=== PATIENT | male | born 1960 | race Caucasian/White ===

== ENCOUNTER → 2023-03-28 13:48 | Outpatient (BNVA) | payer MEDICARE, MEDICAID, SELFPAY | PROVIDERS: Visit Provider Surgery | DX: R10.31 Right lower quadrant pain (principal) | CPT/HCPCS: 99204 ==

== ENCOUNTER 2023-04-16 08:04 | Day surgery (SDC) | payer MEDICARE, OTHER, SELFPAY ==
[2023-04-16] VITALS (10 sets, daily range): BP systolic 130–141; BP diastolic 79–93; PULSE 85–96; RESP 13–25; TEMP 36.2–36.6; O2SAT 94–99; BMI 23.1
[2023-04-16] MEDS: sodium chloride 0.9% 1,000 ML 30 ML IV (08:58)
--- NOTE | 2023-04-16 09:19 | W.PM.OPSUD ---
Surgery/Procedure H&P Update DATE OF PROCEDURE: April 16, 2023 DATE H&P PERFORMED: 03/28/23 H&P UPDATE INFORMATION: I have reviewed H&P completed within last 30 days, I have examined patient prior to procedure and No changes to prior documentation PLANNED PROCEDURE: Operation Date: 04/16/23 10:00 Proposed Procedures p 30277 lap kyia r10.9(Not Applicable) - Kenneth Hathaway,
--- NOTE | 2023-04-16 09:21 | ANES.PREANE2 ---
Pre-Anesthetic Assessment Height/Weight: Height 1.8 m Weight 75.296 kg Temp Pulse Resp BP Pulse Ox O2 Del Method 97.9 F 96 18 131/79 99 Room Air 04/16/23 08:27 04/16/23 08:27 04/16/23 08:27 04/16/23 08:27 04/16/23 08:27 04/16/23 08:40 Operation Date: 04/16/23 10:00 Proposed Procedures p 28455 lap kiya r10.9(Not Applicable) - Kenneth Hathaway DO Familial anesthetic complications: none Was Beta Thalia taken within 24 hours: N/A Was Clonidine taken within 24 hours: N/A Last intake: Intake Last Liquid Date 04/15/23 Last Liquid Time 11:30 Last Solid Date 04/15/23 Last Solid Time 11:30 Social No alcohol and No tobacco Exam alert, oriented x 3, clear to auscultation bilaterally and regular rate & rhythm Airway Submandibular: within normal limits Cervical ROM: within normal limits Mallampati: Class II Dentition: false (upper) History/ROS No significant history except as noted Anesthetic Plan ASA status: 1 Anesthesia: General Medications/Allergies Home Medications Medication Instructions Recorded Confirmed Last Taken Type No Known Home Medications 04/13/23 04/13/23 Unknown History Allergies Allergy/AdvReac Type Severity Reaction Status Date / Time No Known Allergies Allergy Verified 04/13/23 14:20 Current Medications Generic Name Dose Route Start Last Admin Trade Name Freq PRN Reason Stop Dose Admin Sodium Chloride 1,000 mls @ 30 mls/hr 04/16/23 08:15 04/16/23 08:58 Sodium Chloride 0.9% IV 04/17/23 08:14 30 mls/hr .Q24H ANDREA Administration PFSH Anesthesia Surgical History Hx of appendectomy 07/2022 Family History Mother Breast cancer Father Lung cancer Social History Smoking and tobacco/nicotine status: never used tobacco/nicotine Alcohol intake: current Alcohol intake frequency: holidays/special occasions only Data Anesthesia Cardiac Studies: No Data to Display
[2023-04-16] MEDS: HYDROmorphone 1 mg/mL INJ 1 mL 0.5 MG IVP (09:34)
[2023-04-16] MEDS: ceFAZolin 2,000 MG in sodium chloride 0.9% (plus) 50 ML 100 MG IV (09:41)
[2023-04-16] MEDS: lidocaine-epi 2% 20 mL INJ INJECTION (10:07)
--- NOTE | 2023-04-16 10:35 | PM.OP ---
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 He was diagnosed with symptomatic cholelithiasis. Laparoscopic cholecystectomy was indicated. The risk and benefits were explained and documented. Procedure: Patient was wheeled operative room placed on the OR table in supine position. The abdomen was inspected prepped and draped in usual sterile fashion. A timeout was performed. All present were in agreement. General endotracheal ovation was achieved by department anesthesia. 2% lidocaine with epinephrine was used to anesthetize the skin over Dent's point in the left upper quadrant. A 15 blade scalpel was then used to make a stab incision. Veress needle was used to create intra-abdominal insufflation to 15 mmHg. A 5 mm trocar was then placed into the umbilicus. Immediately upon entering the abdomen there was obvious mucin throughout the abdomen along with fixed and matted small and large bowel. 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 I then paused and scrubbed out to go talk to next of kin. I explained my findings and that there is a significant amount of matted bowel in the right hemiabdomen and right upper quadrant covering the gallbladder. I recommended that we sample the mucin and send it to cytology and not proceed with cholecystectomy. The next of kin was agreeable to this. I then scrubbed back in and extended the stab incision in the left upper quadrant to a 5 mm incision. A second 5 mm trocar was placed in the left upper quadrant. I then suctioned mucin out of the pelvis to send to pathology. Intra-abdominal insufflation was released. Skin was closed with 4-0 Monocryl in a subcuticular fashion. Skin glue was applied. Patient tolerated procedure well
[2023-04-16] MEDS: HYDROcodone-acetaminophen 10-325 mg Tablet 1 TAB PO (11:37)
[2023-04-16 11:59] LABS: Cyto Order Verification Order Verified
[2023-04-16 12:19] LABS: Carcinoembryonic Antigen 1.3 ng/mL (0.0-4.7)
--- NOTE | 2023-04-16 16:10 | ANE.PACU2 ---
Inpatient post-anesthesia follow up: Airway intact: Yes Vital signs: Temperature 97.8 F Pulse Rate 95 Respiratory Rate 16 Blood Pressure 136/88 Pulse Oximetry 95 Oxygen Delivery Me thod Room Air Oxygen Flow Rate Fraction of Inspir ed Oxygen Hydration adequate: Yes Nausea and vomiting: No Pain level: 2 Mental status: Baseline
== END 2023-04-16 11:55 | disposition home or self-care (01) ==
PROVIDERS: Surgery; PCP Physician Assistant; Visit Provider Pathology Anatomic Pathology & Clinical Pathology
PROC: (CPT 49320; principal; 2023-04-16 10:00)
DX: K80.20 Calculus of gallbladder without cholecystitis without obstruction (principal); C79.89 Secondary malignant neoplasm of other specified sites; G71.19 Other specified myotonic disorders
CPT/HCPCS: 49320; 36415; 82378; 88112; 88305; J0131; J0690; J1100; J1170; J2371; J2405; J2704; J3010; J3490; J7030

== ENCOUNTER → 2023-04-25 14:24 | Outpatient (BNVA) | payer MEDICARE, OTHER, SELFPAY | PROVIDERS: PCP Physician Assistant; Visit Provider Surgery | DX: C76.2 Malignant neoplasm of abdomen (principal); R10.9 Unspecified abdominal pain; Z98.890 Other specified postprocedural states | CPT/HCPCS: 99024 ==